=== PATIENT | male | born 1970 | race American Indian/Alaskan Native ===

== ENCOUNTER 2018-11-05 15:28 | Emergency (ER) | payer SELFPAY ==
--- NOTE | 2018-11-05 15:55 | Emergency Department Report ---
Blank Doc - Documentation Documentation: 48 y o male presents with ED cc o headche from sinus pressure states he takes a clarintin D to help relief no hx of HTN unaware of elevated BP
[2018-11-05] MEDS ORDERED: CATAPRES PO ONE (18:20)
--- NOTE | 2018-11-05 18:25 | Emergency Department Report ---
Minor Respiratory - HPI Chief Complaint: Headache Stated Complaint: SINUS Time Seen by Provider: 11/05/18 15:51 Duration: 3 Days Pain Location: Other Severity: mild Minor Respiratory: Yes Sore Throat, Yes Able to Tolerate Fluids, No Rhinorrhea, No Ear Pain, No Cough, No Sick Contacts, No Hemoptysis, No Chest Pain, No Shortness of Breath, No Fever Other History: Patient is a 48-year-old male who comes in with sinus congestion and pain. He reports a headache across his frontal sinus. He denies fever. He denies nausea or vomiting. He denies any other neurological symptoms. He does report when he lays down at 90 To take one his throat which makes him cough. He states that he has ear pressure and fullness at times. He does have a history of sinus issues. He is on no medications. He denies any medical history. Patient's blood pressure was noted to be elevated in triage. He denies any previous problems with his blood pressure. We had a long discussion about blood pressure and stroke etc. Patient has no focal neuro deficit. ED Review of Systems ROS: Stated complaint: SINUS Other details as noted in HPI Comment: All other systems reviewed and negative ED Past Medical Hx - Past Medical History Previous Medical History?: No - Surgical History Past Surgical History?: No - Social History Smoking Status: Never Smoker - Medications Home Medications: Home Medications Medication Instructions Recorded Confirmed Last Taken Type Cetirizine HCl [ZyrTEC] 10 mg PO DAILY #30 capsule 11/05/18 Unknown Rx Fluticasone [Flonase] 1 spray NS QDAY #1 bottle 11/05/18 Unknown Rx predniSONE [Deltasone] 20 mg PO DAILY #5 tablet 11/05/18 Unknown Rx Minor Respiratory Exam - Exam General: Vital signs noted. No distress. Alert and acting appropriately. WDWN patient in NAD VS per RN flow sheet Alert and oriented to person, place and time. She has no focal neurologic deficit. Patient's throat has slight erythema. He has pain on palpation of his frontal sinuses bilaterally. TMs are within normal limits. Lungs are clear. S1-S2. No S3 or S4. No systolic or diastolic murmur. No JVD. No pitting edema. Lungs clear to auscultation bilaterally anteriorly and posteriorly. Abdomen soft nontender bowel sounds x4 Moves all extremities well. Mood and affect appropriate. Neurologic: Alert and oriented, no deficits. Musculoskeletal: Unremarkable. ED Course Vital Signs 11/05/18 15:49 Temperature 98.4 F Pulse Rate 83 Respiratory 20 Rate Blood Pressure 153/101 O2 Sat by Pulse 100 Oximetry ED Medical Decision Making - Medical Decision Making I've had a long discussion with patient about his blood pressure. Patient will be treated for sinusitis but also we discussed diet and monitoring of his blood pressure. He will follow up with the primary care. Patient being discharged home with discharge planning care. Vital Signs 11/05/18 15:49 Temperature 98.4 F Pulse Rate 83 Respiratory 20 Rate Blood Pressure 153/101 O2 Sat by Pulse 100 Oximetry Critical care attestation.: If time is entered above; I have spent that time in minutes in the direct care of this critically ill patient, excluding procedure time. ED Disposition Clinical Impression: Sinusitis, Elevated blood pressure reading Disposition: - TO HOME OR SELFCARE Is pt being admited?: No Does the pt Need Aspirin: No Condition: Stable Instructions: Low Sodium Diet (ED), Hypertension (ED) Additional Instructions: DIET TOLERATED. low fat low salt diet MEDS ORDERED TODAY IN ER FOLLOW INSTRUCTIONS ON THE BOTTLE FOLLOW UP PCP WITHIN 48 HOURS TO ENSURE YOU ARE GETTING BETTER ACTIVITY TOLERATED MOTRIN OR TYLENOL FOR PAIN OR FEVER RETURN TO THE ER FOR WORSENING SYMPTOMS NOT RELIEVED BY YOUR MEDICATIONS. Monitor your blood pressure as we have discussed Follow-up with primary care. Referral has been given below Referrals: SYLVIE SIMMONS MD [Primary Care Provider] - 3-5 Days Time of Disposition: 18:25
[2018-11-05] MEDS ORDERED: DELTASONE PO ONE (18:26)
[2018-11-05 18:35] VITALS: BP 159/103
== END 2018-11-05 18:35 | disposition home or self-care (01) ==
LOC: ED 15:28
DX: J32.9 Chronic sinusitis, unspecified (principal); I10 Essential (primary) hypertension
CPT/HCPCS: 99283; J7512